=== PATIENT | male | born 1980 | race Caucasian/White ===

== ENCOUNTER 2017-08-24 09:16 | Emergency (ER) | payer BC ==
[~2017-08-24] VITALS: Ht 167.6 cm; Wt 72.6 kg
[~2017-08-24 09:16] MED LIST: BACTRIM DS 8001 TA1 PO; BENZONATATE200 MG PO; CEFDINIR300 MG PO; DAYPRO600 M1 PO; KEFLEX500 M1 PO; KEFLEX500 MG PO; MEDROL DOSEPAK4 MG PO; Motrin,Rufen800 MG PO; PREDNICOT20 MG PO; PREVACID30 M1 PO; PROAIR HFA8.5 GM INH; ROBAXIN750 MG PO; VICODIN 5/500 505 MG; VICODIN 5/500 505 MG PO; VICODIN 500 MG-1 TAB PO
[2017-08-24] MEDS ORDERED: PENICILLIN-VK500 MG PO (09:37)
[2017-08-24] MEDS ORDERED: Motrin,Rufen800 MG PO (09:37)
== END 2017-08-24 09:44 | disposition home or self-care (01) ==
LOC: ED 09:16
DX: K02.9 Dental caries, unspecified (principal); Z79.899 Other long term (current) drug therapy

== ENCOUNTER 2018-02-01 07:57 | Emergency (ER) | payer BC ==
[~2018-02-01] VITALS: Ht 167.6 cm; Wt 69.4 kg
--- NOTE | ~2018-02-01 | EKG ---
[place], [place] ELECTROCARDIOGRAM REPORT NAME: CHILO YOON UNIT #: [id number] ROOM: DOCTOR: PRIETO DRAFT REPORT BIRTHDATE: [birth year] [facility] Test Date: 2018-02-01 Test Time: 08:16:59 Pat Name: CHILO YOON Department: Room: Gender: Spare Hand: Claudine Briggs : 1980 Requested By: JONY MAURER Order Number: [id number] Reading MD: Ajith Davis MD Measurements Intervals [place] Rate: 92 P: 79 [place]: 172 QRS: 52 QRSD: 102 T: 52 QT: 369 QTc: 457 Interpretive Statements Sinus rhythm Probable left atrial enlargement ST elev, probable normal early repol pattern No previous ECG available for comparison Electronically Signed On 02-01-2018 19:31:38 PST by Ajith Davis MD CM:EKGRPT:ELECTROCARDIOGRAM REPORT 30 JONY CHIN DRAFT REPORT JONY MAURER DO
[~2018-02-01 07:57] MED LIST changes: +PENICILLIN-VK500 MG PO
[2018-02-01 08:21] LABS: BASO # 0.1 10*3/uL (0.0-0.1); BASO % 1.2 % (0.0-1.0); EOS # 0.2 10*3/uL (0.0-0.4); EOS % 3.6 % (1.0-4.0); HEMATOCRIT 45.9 % (42.0-52.0); HEMOGLOBIN 15.6 g/dl (14.0-18.0); LYMPH # 1.6 10*3/uL (1.3-4.4); LYMPH % 36.8 % (27.0-41.0); MEAN CELL VOLUME 91.3 fl (80.0-94.0); MEAN PLATELET VOLUME 8.6 fl (9.6-12.3); MONO # 0.3 10*3/uL (0.1-1.0); MONO % 7.6 % (3.0-9.0); NEUT # 2.1 10*3/uL (2.3-7.9); NEUT % 50.6 % (47.0-73.0); PLATELET COUNT AUTOMATED 308 10*3/uL (130-400); RED BLOOD COUNT 5.03 10*6/uL (4.50-5.90); RED CELL DISTRI WIDTH 13.3 % (0-14.5); WHITE BLOOD COUNT 4.2 10*3/uL (4.8-10.8)
[2018-02-01 08:29] LABS: INTERNATIONAL NORM RATIO 1.1 (2.0-3.5)
[2018-02-01 08:37] LABS: ALBUMIN 4.2 gm/dl (3.1-4.5); ALKALINE PHOSPHATASE 37 U/L (45-117); BUN 12 mg/dl (7-24); CHLORIDE 105 mmol/L (98-107); CREATININE 0.99 mg/dL (0.70-1.30); LIPASE 112 U/L (73-393); POTASSIUM 3.8 mmol/L (3.5-5.1); SGOT/AST 14 IU/L (3-35); SGPT/ALT 17 U/L (12-78); SODIUM 137 mmol/L (136-145); TOTAL PROTEIN 7.5 gm/dL (6.4-8.2)
[2018-02-01 08:40] LABS: TROPONIN I < 0.015 ng/ml (<0.045)
[2018-02-01] MEDS ORDERED: ATIVAN1 MG PO (10:11)
== END 2018-02-01 10:14 | disposition home or self-care (01) ==
LOC: ED 07:57
PROVIDERS: Emergency Medicine
DX: F41.0 Panic disorder [episodic paroxysmal anxiety] (principal); F41.9 Anxiety disorder, unspecified; R06.02 Shortness of breath; R45.0 Nervousness; H53.8 Other visual disturbances

== ENCOUNTER 2022-08-20 17:40 | Emergency (ER) | payer SELFPAY ==
[~2022-08-20] VITALS: Ht 170.1 cm; Wt 83.9 kg
[~2022-08-20 17:40] MED LIST changes: +ATIVAN1 MG PO
[2022-08-20] MEDS ORDERED: PENICILLIN-VK500 MG PO (18:01)
== END 2022-08-20 18:21 | disposition home or self-care (01) ==
LOC: ED 17:40
DX: K04.7 Periapical abscess without sinus (principal); Z79.899 Other long term (current) drug therapy